=== PATIENT | female | born 1965 | race Caucasian/White ===

== ENCOUNTER 2021-07-23 17:12 | Emergency (ER) | payer OTHER ==
[~2021-07-23] VITALS: Ht 149.9 cm; Wt 61.2 kg
[2021-07-23 18:35] VITALS: BP 128/82
[2021-07-23] MEDS ORDERED: KETOROLAC 15 MG/ML VIAL IM ONE (21:45)
[2021-07-23] MEDS ORDERED: LIDO4CRE18 TP (22:42)
--- NOTE | 2021-07-23 22:50 | NUR ---
PT CALLED IN LOBBY AND OUTSIDE TO PROVIDE DISCHARGE INSTRUCTIONS, NO ANSWER. PT LEFT FACILITY WITHOUT DISCHARGE INSTRUCTIONS OR MEDICATION ADMINISTRATION OF 15MG IM TORADOL.
== END 2021-07-23 22:50 | disposition home or self-care (01) ==
LOC: MED 17:12
DX: M25.512 Pain in left shoulder (principal); Z79.899 Other long term (current) drug therapy
CPT/HCPCS: 71046; 99283